=== PATIENT | female | born 1940 | race Caucasian/White ===

== ENCOUNTER 2017-02-07 14:02 | Inpatient (IN) | payer MEDICARE, BC ==
[2017-02-07] VITALS (11 sets, daily range): BP systolic 152–187; BP diastolic 68–81; BMI 23.8
[~2017-02-07] VITALS: Ht 157.5 cm; Wt 62.9 kg
--- NOTE | 2017-02-07 14:29 | NUR ---
RECEIVED VIA WHEELCHAIR TO ROOM. VERY PALE IN COLOR, WILL ADMIT.
[2017-02-07] MEDS ORDERED: NEURONTIN 300300 MG PO (14:39)
[2017-02-07] MEDS ORDERED: PROTONIX40 MG PO (14:41)
[2017-02-07] MEDS ORDERED: SODIUM BICARBO650 MG PO (14:41)
[2017-02-07] MEDS ORDERED: RENVELA800 MG PO (14:42)
[2017-02-07] MEDS ORDERED: FLOMAX0.4 MG PO (14:42)
[2017-02-07] MEDS ORDERED: ROCALTROL0.5 MCG PO (14:42)
[2017-02-07] MEDS ORDERED: BAYER CHEWABLE81 MG PO (14:43)
[2017-02-07] MEDS ORDERED: LOPRESSOR25 MG PO (14:43)
[2017-02-07] MEDS ORDERED: FOLBIC RF TABL1 EACH PO (14:44)
[2017-02-07] MEDS ORDERED: PROBIOTIC1 EAC1 PO (14:45)
[2017-02-07] MEDS ORDERED: COSOPT EYE DROPS5 ML EACH EYE (14:46)
[2017-02-07] MEDS ORDERED: MULTIPLE VITAMI1 TA1 PO (14:46)
[2017-02-07] MEDS ORDERED: ZOCOR20 MG PO (14:47)
[2017-02-07 16:01] LABS: BASOPHILS 0.2 % (0-2); EOSINOPHILS 6.4 % (0-7); HEMATOCRIT 27.9 % (36.0-48.0); IMMATURE GRANULOCYTES 0.1 % (0-5); LYMPHOCYTES 28.7 % (15-50); MCH 28.7 pg (26.0-34.0); MCHC 32.3 g/dL (31.0-37.0); MCV 88.9 fL (80.0-100.0); MEAN PLATELET VOLUME 10.2 fL (7.4-10.4); MONOCYTES 7.4 % (2-11); NEUTROPHILS 57.2 % (40-80); PLATELET COUNT 227 10x3/uL (130-400); RBC 3.14 10x6/uL (4.00-5.40); RDW 13.2 % (11.5-14.5); WBC 9.4 10x3/uL (4.8-10.8)
--- NOTE | 2017-02-07 16:13 | NUR ---
EKG DONE AND URINE SENT FOR CULTURE ORDERED.
[2017-02-07 16:16] LABS: APPEARANCE HAZY (CLEAR); BILIRUBIN NEGATIVE (NEGATIVE); COLOR YELLOW (YELLOW); GLUCOSE 50 mg/dL (NEGATIVE); KETONE NEGATIVE (NEGATIVE); LEUKOCYTE ESTERASE 2+ (NEGATIVE); NITRITE NEGATIVE (NEGATIVE); PROTEIN TRACE mg/dL (NEGATIVE); UROBILINOGEN NORMAL (NORMAL)
[2017-02-07 16:17] LABS: BACTERIA FEW /hpf (NONE SEEN); EPITHELIAL CELLS OCC /hpf (0-5); RED CELLS - URINE >50 /hpf (0-5)
[2017-02-07 16:18] LABS: ANION GAP 15.8 mmol/L (8-16); CALCIUM 11.5 mg/dL (8.5-10.1); CARBON DIOXIDE 31.2 mmol/L (21.0-32.0); CREATININE - SERUM 9.7 mg/dL (0.6-1.3)
--- NOTE | 2017-02-07 17:36 | NUR ---
TO OR VIA BED.
--- NOTE | 2017-02-07 19:22 | NUR ---
RECEIVED FROM VIA BED WITH 02 AT 2L. SLEEPY. BED ALARM IS SET. WILL MONITOR.
--- NOTE | 2017-02-07 19:29 | NUR ---
PATIENT IS BACK FROM SURGERY AND RESTING IN BED WITH DAUGHTER AT BEDSIDE. NO VISIBLE SIGNS OF DISTRESS. PATIENT'S BED IN LOWEST POSITION, CALL LIGHT WITHIN REACH, AND BED ALARM ON. ENCOURAGED THE PATIENT AND DAUGHTER TO CALL IF THEY HAVE NEEDS.
[2017-02-08] VITALS (8 sets, daily range): BP systolic 151–179; BP diastolic 61–72; Ht 157.5 cm; Wt 62.9 kg
--- NOTE | 2017-02-08 07:00 | NUR ---
RECEIVED REPORT. ASSUMED CARE OF PATIENT. CALL LIGHT WITHIN REACH. PATIENT WITH EYES CLOSED. EASILY AROUSED. RESP EVEN AND UNLABORED. DENIES NEEDS AT THIS TIME. NO DISTRESS.
--- NOTE | 2017-02-08 08:35 | NUR ---
ASSISTED PATIENT TO RESTROOM. PATIENT DOES WELL WITH WALKER. STENTS REPLACED YESTERDAY TO BILATERAL URETERS. BLOOD TINGED URINE IN [place] HAT, 375ML. ASSISTED PATIENT BACK TO BED. DAUGHTER AT BEDSIDE. CALL LIGHT WITHIN REACH. NO DISTRESS.
[2017-02-08 09:27] LABS: BASOPHILS 0.3 % (0-2)
[2017-02-08 09:41] LABS: ANION GAP 16.1 mmol/L (8-16); CALCIUM 9.7 mg/dL (8.5-10.1); CREATININE - SERUM 9.4 mg/dL (0.6-1.3); POTASSIUM - SERUM 3.1 mmol/L (3.5-5.1)
--- NOTE | 2017-02-08 10:30 | NUR ---
LAB CALLED TO REPORT AND ERROR IN PREVIOUS LAB RESULTS AND THAT PATIENT DOES NOT HAVE A CRITICAL HEMOGLOBIN OF7.3, HGB IS 8.8. RENAL DOG OBEDIENCE INSTRUCTOR NOTIFIED AND ORDER TO TRANSFUSE BLOOD CANCELED. CALLED ALEX IN LAB AND NOTIFIED HIM THAT BLOOD WOULD NOT BE TRANSFUSED BUT PLEASE TYPE AND CROSS JUST IN CASE WE NEED IT SINCE THE BLOOD HAS ALREADY BEEN RETRIEVED FROM THE PATIENT.
[2017-02-08 10:39] LABS: EOSINOPHILS 5.2 % (0-7); HEMATOCRIT 27.9 % (36.0-48.0); IMMATURE GRANULOCYTES 0.2 % (0-5); LYMPHOCYTES 19.7 % (15-50); MCH 28.6 pg (26.0-34.0); MCHC 31.5 g/dL (31.0-37.0); MCV 90.6 fL (80.0-100.0); MONOCYTES 7.8 % (2-11); NEUTROPHILS 66.8 % (40-80); PLATELET COUNT 204 10x3/uL (130-400); RBC 3.08 10x6/uL (4.00-5.40); RDW 13.3 % (11.5-14.5); WBC 9.2 10x3/uL (4.8-10.8)
[2017-02-08 10:40] LABS: HEMOGLOBIN 8.8 g/dL (12-16)
--- NOTE | 2017-02-08 11:12 | NUR ---
IV FLUID RATE REDUCED TO 10ML/HR ORDERED.
--- NOTE | 2017-02-08 11:45 | NUR ---
IV FLUIDS INCREASED TO 100 ML/HR ORDERED AT THIS TIME. RESTING IN BED. CALL LIGHT WITHIN REACH. NO DISTRESS.
--- NOTE | 2017-02-08 15:30 | NUR ---
SITTING IN BED WITH EYES CLOSED, TABLET ON LAP. CALL LIGHT WITHIN REACH. RESP EVEN AND UNLABORED. TOLERATING IV FLUIDS WELL, NO FLUID OVERLOAD OBSERVED. NO DISTRESS.
--- NOTE | 2017-02-08 18:42 | NUR ---
SITTING IN BED, DAUGHTER AT BEDSIDE. CALL LIGHT WITHIN REACH. DENIES NEEDS.
--- NOTE | 2017-02-08 20:30 | NUR ---
ALERT/ORIENTED X 4. IV IN RT FA WITH NS INFUSING AT 100ML/HR. ADMIN SCHED MEDS WITH SIPS OF WATER AND EYE DROPS. REQUESTED DOOR CLOSED AND LIGHTS OFF TO SLEEP. HAS CALL LIGHT IN REACH.
--- NOTE | 2017-02-09 03:00 | NUR ---
AGRICULTURAL REAL ESTATE AGENT GIVING A BATH AND CHANGING BEDDING.
[2017-02-09 04:00] VITALS: BP 152/62
[2017-02-09 06:10] LABS: BASOPHILS 0.2 % (0-2); EOSINOPHILS 6.2 % (0-7); HEMATOCRIT 24.2 % (36.0-48.0); HEMOGLOBIN 7.6 g/dL (12-16); IMMATURE GRANULOCYTES 0.2 % (0-5); LYMPHOCYTES 22.6 % (15-50); MCH 28.4 pg (26.0-34.0); MCHC 31.4 g/dL (31.0-37.0); MCV 90.3 fL (80.0-100.0); MONOCYTES 7.9 % (2-11); NEUTROPHILS 62.9 % (40-80); PLATELET COUNT 193 10x3/uL (130-400); RBC 2.68 10x6/uL (4.00-5.40); RDW 13.4 % (11.5-14.5); WBC 8.3 10x3/uL (4.8-10.8)
[2017-02-09 06:49] LABS: CALCIUM 9.1 mg/dL (8.5-10.1); CARBON DIOXIDE 24.2 mmol/L (21.0-32.0); CREATININE - SERUM 9.3 mg/dL (0.6-1.3)
[2017-02-09 06:54] LABS: ANION GAP 18.7 mmol/L (8-16)
[2017-02-09 06:57] LABS: POTASSIUM - SERUM 2.9 mmol/L (3.5-5.1)
--- NOTE | 2017-02-09 07:00 | NUR ---
RECEIVED REPORT. ASSUMED CARE OF PATIENT. RESTING IN BED WITH EYES CLOSED. EASILY AROUSED. RESP EVEN AND UNLABORED. NO DISTRESS. STATES SHE FEELS TIRED THIS MORNING. NO DISTRESS.
[2017-02-09 08:00] VITALS: BP 125/62
--- NOTE | 2017-02-09 08:15 | NUR ---
REQUESTED THAT LAB RECHECK H&H SINCE YESTERDAY MORNING HAD A FALSE LOW. LAB REPEATED H&H AND VERIFIED HGB OF 7.8. RENAL NURSE PRACTITIONER HERE AND NOTIFIED THAT BLOOD TRANSFUSION WOULD BE STARTED SINCE LAB VERIFIED H&H. ORDER RECEIVED TO GIVE LASIX BETWEEN UNITS OF BLOOD.
--- NOTE | 2017-02-09 08:30 | NUR ---
BLOOD CONSENT SIGNED AND PLACED ON CHART.
--- NOTE | 2017-02-09 08:50 | NUR ---
BLOOD TRANSFUSION INFUSING, NO REACTION AFTER 5 MINUTES AT THIS TIME. EDUCATED ON S/S OF BLOOD TRANSFUSION REACTION. PATIENTS DAUGHTER AT BEDSIDE. CALL LIGHT WITHIN REACH. NO DISTRESS.
--- NOTE | 2017-02-09 09:52 | NUR ---
PATIENT IS NOT ALLERGIC TO FRUIT AND REQUEST THAT THE FRUIT ALLERGY BE REMOVED FROM HER MEDICAL RECORD SO SHE COULD HAVE A BANANA. BANANA OK'D WITH RENAL NURSE PRACTITIONER K+ LEVEL WAS 3.1 THIS AM.
--- NOTE | 2017-02-09 09:53 | NUR ---
TOLERATING BLOOD TRANSFUSION WELL. RESTING WITH EYES CLOSED. RESP EVEN AND UNLABORED. DAUGHTER AT BEDSIDE. NO DISTRESS.
--- NOTE | 2017-02-09 10:48 | NUR ---
RESTING WELL. CONTINUES TO TOLERATED BLOOD TRANSFUSION. DAUGHTER AT BEDSIDE. CALL WESTON HOLDER.
[2017-02-09 11:31] VITALS: BP 124/64
--- NOTE | 2017-02-09 12:16 | NUR ---
IST UNIT OF PRBC'S COMPLETED AT THIS TIME. NO DISTRESS. PATIENT UP OOB TO RESTROOM AT THIS TIME.
--- NOTE | 2017-02-09 13:18 | NUR ---
UNIT #2 PRBC'S INFUSING. NO TRANSFUSION REACTION. RESTING WELL WITH EYES CLOSED. CALL LIGHT WITHIN REACH. NO DISTRESS.
--- NOTE | 2017-02-09 16:56 | NUR ---
BLOOD TRANSFUSION COMPLETE. TOLERATED WELL. SITTING IN BED CONSUMING PM MEAL. CALL LIGHT WITHIN REACH. NO DISTRESS.
--- NOTE | 2017-02-09 18:08 | NUR ---
1800 RECEIVED NEW ORDER FROM YAHIR KING FOR TYLENOL 650MG PO Q4 HOURS PRN. PATIENT COMPLAINING OF HEADACHE.
--- NOTE | 2017-02-09 19:05 | NUR ---
20 GAUGE IV TO RIGHT FOREARM FOUND TO BE INFILTRATED. IV CATHETER REMOVED, CATHETER TIP INTACT. NO BLEEDING FROM SITE. 2X2 GAUZE APPLIED AND SECURED WITH TAPE. 20 GAUGE IV PLACED TO RIGHT UPPER ARM X 1 STICK. GOOD BLOOD RETURN, EASY FLUSH. TAPED, DATED AND SECURED. IV FLUIDS INFUSING ORDERED. TOLERATED IV PLACEMENT WELL.
--- NOTE | 2017-02-09 19:49 | NUR ---
RESUMED CARE OF PT, LYING IN BED RESPIRATIONS EVEN AND UNLABORED ON ROOM AIR. RIGHT UPPER ARM INFUSING NS @ 50. PLAN OF CARE DISCUSSED, CALL LIGHT IN REACH. NO NEEDS VOICED AT THIS TIME. SEE NURSE ASSESSMENT.
[2017-02-09 22:00] VITALS: BP 160/59
[2017-02-10] VITALS: BP 174/72
[2017-02-10 04:39] LABS: BASOPHILS 0.2 % (0-2); EOSINOPHILS 6.9 % (0-7); IMMATURE GRANULOCYTES 0.2 % (0-5); LYMPHOCYTES 19.7 % (15-50); MCHC 33.4 g/dL (31.0-37.0); MEAN PLATELET VOLUME 9.9 fL (7.4-10.4); MONOCYTES 11.9 % (2-11); NEUTROPHILS 61.1 % (40-80); PLATELET COUNT 180 10x3/uL (130-400); RDW 13.9 % (11.5-14.5); WBC 8.8 10x3/uL (4.8-10.8)
[2017-02-10 04:42] LABS: HEMATOCRIT 32.6 % (36.0-48.0); HEMOGLOBIN 10.9 g/dL (12-16); MCV 86.7 fL (80.0-100.0); RBC 3.76 10x6/uL (4.00-5.40)
[2017-02-10 04:52] LABS: ANION GAP 16.8 mmol/L (8-16); CALCIUM 8.9 mg/dL (8.5-10.1); CARBON DIOXIDE 22.3 mmol/L (21.0-32.0); CREATININE - SERUM 8.2 mg/dL (0.6-1.3); MAGNESIUM - SERUM 1.4 mg/dL (1.8-2.4); POTASSIUM - SERUM 3.1 mmol/L (3.5-5.1)
[2017-02-10 05:03] VITALS: BP 180/70
[2017-02-10 08:00] VITALS: BP 171/68
--- NOTE | 2017-02-10 08:00 | NUR ---
PATIETN RESTING IN HER BED, DAUGHTER AT THE BEDSIDE. SHE IS WITHOUT C/O ANY KIND.
--- NOTE | 2017-02-10 08:35 | NUR ---
OSMANI TOOK ALL MEDICATIONS WITHOUT DIFFICULTY.
[2017-02-10 12:00] VITALS: BP 157/68
--- NOTE | 2017-02-10 12:52 | NUR ---
Nutrition follow-up: Diet: Renal ADA consistent CHO PO intake 75-100% of meals labs reviewed +BM Wt: 139# RDN following.
--- NOTE | 2017-02-10 14:10 | NUR ---
PATIENT UP TO THE RESTROOM USING HER WALKER. SHE REQUIRES STAND BY ASSIST ONLY.
--- NOTE | 2017-02-10 14:47 | NUR ---
Patient Name: GOSIA VILLANUEVA Admission Status: Urgent Accout number: [id number] Admission Date: 02-07-2017 : 1940 Admission Diagnosis: Attending: DIAMANTE Current LOS: 3 Anticipated DC Date: 02-12-2017 Planned Disposition: Home Primary Insurance: MEDICARE A & B Discharge Planning Comments: * Is the patient Alert and Oriented? Yes 0 * How many steps to enter\exit or inside your home? RAMP 0 * PCP DR. NAVARRO IN [place] 0 * Pharmacy [facility] IN [place] 0 * Preadmission Environment Home with Family 0 * ADLs Partial Dependent 0 * Partial ADLs (Assistance needed) Medication Management 0 * Equipment Walker 0 * Other Equipment NO MEDICAL EQUIPMENT PROVIDER PREFERENCE 0 * List name and contact numbers for known caregivers / representatives who currently or will assist patient after discharge: BRYN VILLANUEVA, DAUGHTER, 0 * Community resources currently utilized None 0 * Please name any agencies selected above. NONE 0 * Additional services required to return to the preadmission environment? No 0 * Can the patient safely return to the preadmission environment? Yes 0 * Has this patient been hospitalized within the prior 30 days at any hospital? No 0 CM MET WITH PT IN ROOM TO DISCUSS DISCHARGE PLANNING AND NEEDS. PT REPORTS LIVING AT HOME INDEPENDENTLY WITH HER SPOUSE. PT'S DAUGHTER IS AVAILABLE TO ASSIST HER AT HOME NEEDED AND ALREADY ASSISTS WITH MEDICATION MANAGEMENT. PT HAS A WALKER AND NO PREFERRED MEDICAL EQUIPMENT PROVIDER. PT HAS NO OUTSIDE SERVICES ASSISTING IN THE HOME. CM DISCUSSED AVAILABILITY OF HOME HEALTH, REHAB SERVICES AND MEDICAL EQUIPMENT. PT DENIES DISCHARGE NEEDS, REPORTS HER DAUGHTER WILL PICK HER UP FOR DISCHARGE HOME. IMPORTANT MESSAGE FROM MEDICARE PROVIDED AND EXPLAINED. Cuff Turner Machine Operator: Rafael Guidry
[2017-02-10 16:00] VITALS: BP 149/71
--- NOTE | 2017-02-10 18:03 | NUR ---
PATIENT IS RESTING QUIETLY IN HER BED, IV ABT COMPLETE. HER IV HAD TO BE RESITED TO THE RIGHT HAND DUE TO THE LEFT UPPER ARM SITE LEAKING OUT. SHE C/O DIARRHEA FROM EATING FRUITS. SHE STATE SHTAT SHE USUALLY HAS ONE PIECE DAILY BUT HAS HAD A PIECE WITH EACH MEAL SINCE BEING HERE.
--- NOTE | 2017-02-10 20:22 | NUR ---
PT AWAKE, ALERT, ORIENTED, DENIES ANY NEEDS. CONTINUE TO MONITOR CLOSELY.
[2017-02-10 23:00] VITALS: BP 190/84
--- NOTE | 2017-02-10 23:51 | NUR ---
PT RESTING COMFORTABLY IN BED, EASILY ROUSABLE TO VERBAL STIMULI, CONTINUE TO MONITOR CLOSELY. PT REQUIRES MINIMAL ASSIST AMBULATING TO BATHROOM, AND USES HER WALKER WELL.
[2017-02-11 01:51] VITALS: BP 169/56
[2017-02-11 05:36] VITALS: BP 171/68
[2017-02-11 06:08] LABS: BASOPHILS 0.3 % (0-2); EOSINOPHILS 7.4 % (0-7); HEMATOCRIT 34.1 % (36.0-48.0); HEMOGLOBIN 11.1 g/dL (12-16); IMMATURE GRANULOCYTES 0.6 % (0-5); LYMPHOCYTES 24.5 % (15-50); MCH 28.5 pg (26.0-34.0); MCHC 32.6 g/dL (31.0-37.0); MCV 87.4 fL (80.0-100.0); MEAN PLATELET VOLUME 10.4 fL (7.4-10.4); MONOCYTES 11.4 % (2-11); NEUTROPHILS 55.8 % (40-80); PLATELET COUNT 184 10x3/uL (130-400); RDW 13.8 % (11.5-14.5); WBC 7.9 10x3/uL (4.8-10.8)
[2017-02-11 06:20] LABS: CALCIUM 8.9 mg/dL (8.5-10.1); CREATININE - SERUM 7.8 mg/dL (0.6-1.3); PHOSPHOROUS 3.8 mg/dL (2.5-4.9)
--- NOTE | 2017-02-11 07:15 | NUR ---
RECEIVED REPORT. ASSUMED CARE OF PATIENT. RESTING WITH EYES CLOSED ON LEFT LATERAL SIDE. EASILY AROUSED. RESP EVEN AND UNLABORED. NO DISTRESS. CALL LIGHT WITHIN REACH.
[2017-02-11 08:00] VITALS: BP 154/53
[2017-02-11 12:03] VITALS: BP 173/59
[2017-02-11 16:00] VITALS: BP 131/71
--- NOTE | 2017-02-11 16:55 | NUR ---
ATTEMPTED TO FLUSH 2O GAUGE TO RIGHT HAND AND IV SITE WILL NOT FLUSH, SALINE RUNNING OUT UNDER DRESSING. IV SITE D/C'D, CATHETER TIP INTACT. NO BLEEDING FROM SITE. 2X2 GAUGE APPLIED AND SECURED WITH TAPE. NO DISTRES.
[2017-02-11 21:01] VITALS: BP 169/78
[2017-02-12 01:04] VITALS: BP 161/62
--- NOTE | 2017-02-12 02:18 | NUR ---
PT LYING ON HER RIGHT SIDE, EYES CLOSED, RESPIRATIONS EVEN AND UNLABORED. PT EASILY ROUSABLE TO VERBAL STIMULI. CONTINUE TO MONITOR CLOSELY.
[2017-02-12 04:18] VITALS: BP 163/67
[2017-02-12 06:01] LABS: BASOPHILS 0.2 % (0-2); EOSINOPHILS 8.7 % (0-7); HEMATOCRIT 33.8 % (36.0-48.0); HEMOGLOBIN 11.1 g/dL (12-16); IMMATURE GRANULOCYTES 0.5 % (0-5); LYMPHOCYTES 25.4 % (15-50); MCH 28.8 pg (26.0-34.0); MCHC 32.8 g/dL (31.0-37.0); MCV 87.6 fL (80.0-100.0); MEAN PLATELET VOLUME 10.1 fL (7.4-10.4); MONOCYTES 10.8 % (2-11); NEUTROPHILS 54.4 % (40-80); PLATELET COUNT 205 10x3/uL (130-400); RBC 3.86 10x6/uL (4.00-5.40); RDW 13.8 % (11.5-14.5)
[2017-02-12 06:32] LABS: % SATURATION 14 % (15-55); IRON 30 ug/dl (35-150); TOTAL IRON BIND CAPACITY 202 ug/dl (260-445); UNSAT IRON BIND CAPACITY 172 ug/dl (150-375)
[2017-02-12 06:35] LABS: ANION GAP 19.2 mmol/L (8-16); CALCIUM 8.9 mg/dL (8.5-10.1); CARBON DIOXIDE 18.4 mmol/L (21.0-32.0); CREATININE - SERUM 7.5 mg/dL (0.6-1.3); MAGNESIUM - SERUM 1.4 mg/dL (1.8-2.4); POTASSIUM - SERUM 3.6 mmol/L (3.5-5.1)
[2017-02-12 08:00] VITALS: BP 144/54
[2017-02-12 12:00] VITALS: BP 171/71
--- NOTE | 2017-02-12 15:02 | NUR ---
UP IN BED PLAYING ON IPAD - DENIES ANY NEEDS - EPOGEN GIVEN LATE D/T NOT STOCKED IN REFRIDGERATOR
[2017-02-12 16:00] VITALS: BP 141/63
--- NOTE | 2017-02-12 16:07 | NUR ---
CALLED PHARMACY TO RESCHEDULE ROCEPHIN D/T LAST NIGHTS DOSE NOT GIVEN UNTIL TODAY
--- NOTE | 2017-02-12 18:22 | NUR ---
UP IN BED VISITIONG W/ DAUGHTER - DENIES ANY NEEDS
[2017-02-12 19:00] VITALS: BP 205/85
--- NOTE | 2017-02-12 20:01 | NUR ---
PT IN BED RESTING. C/O HEADACHE 01/11. WILL CHECK MAR FOR SOMETHING FOR THE HEADACHE. D5W RUNNING AT 75 TO RIGHT FOREARM IV, NO COMPLAINTS ABOUT IV. DRESSING CLEAN DRY AND INTACT. PT DENIES ANY OTHER NEEDS. NO S/S OF DISTRESS. WILL CONTINUE TO MONITOR
[2017-02-13] VITALS (7 sets, daily range): BP systolic 140–172; BP diastolic 56–85
--- NOTE | 2017-02-13 01:24 | NUR ---
PT SLEEPING RESPIRATIONS EVEN AND UNLABORED. NO S/S OF DISTRESS. WILL CONTINUE TO MONITOR
[2017-02-13 06:16] LABS: BASOPHILS 0.3 % (0-2); EOSINOPHILS 6.8 % (0-7); HEMOGLOBIN 10.1 g/dL (12-16); IMMATURE GRANULOCYTES 0.8 % (0-5); LYMPHOCYTES 24.5 % (15-50); MCH 28.2 pg (26.0-34.0); MCHC 32.6 g/dL (31.0-37.0); MCV 86.6 fL (80.0-100.0); MEAN PLATELET VOLUME 10.7 fL (7.4-10.4); MONOCYTES 10.7 % (2-11); NEUTROPHILS 56.9 % (40-80); PLATELET COUNT 192 10x3/uL (130-400); RBC 3.58 10x6/uL (4.00-5.40); RDW 13.9 % (11.5-14.5); WBC 6.7 10x3/uL (4.8-10.8)
[2017-02-13 06:25] LABS: ANION GAP 20.8 mmol/L (8-16); CALCIUM 9.6 mg/dL (8.5-10.1); CARBON DIOXIDE 18.1 mmol/L (21.0-32.0); CREATININE - SERUM 7.5 mg/dL (0.6-1.3); PHOSPHOROUS 4.1 mg/dL (2.5-4.9); POTASSIUM - SERUM 3.9 mmol/L (3.5-5.1)
--- NOTE | 2017-02-13 07:04 | NUR ---
PT IN ROOM RESTING. IV NOT INFUSING R/T PUMP PROB. KOTA NOTIFIED. PT DENIES ANY NEEDS. NO S/S OF DISTRESS. WILL CONTINUE TO MONITOR
--- NOTE | 2017-02-13 07:45 | NUR ---
INTRODUCED MYSELF TO PT PRIMARY RN FOR TODAYS SHIFT. PT A&O SITTING UP IN BED WITH DAUGHTER AT BEDSIDE RESTING COMFORTABLY. SHIFT ASSESSMENT COMPLETED. PT WILL HAVE A STUDENT NURSE TODAY CK AND IS AWARE AND HAD HER YESTERDAY AND VERBALIZED ITS OKAY FOR HER TO PROVIDE HER CARE TODAY. PT DENIES ANY CURRENT PAIN OR NEEDS AT THIS TIME. CL IN REACH, BED IN LOWEST, SIDE RAILS X2 WILL CPOC.
--- NOTE | 2017-02-13 13:34 | NUR ---
Dialysis Coordinator: notified of patient. Review chart, no orders for OPHD placement needs. GEN REYES.
--- NOTE | 2017-02-13 14:43 | NUR ---
PTS R.FA PIV INFILTRATED. D/C WITH CATH TIP FULLY INTACT. NEW 22 GUAGE PLACED VIA R.HAND WITH DRSG CDI AND SWAB CAPS IN USE. ALL NEW TUBING PROVIDED AND DATED PER POLICY. PT HAS D5 1/2 NS INFUSING @75ML/HR. PT SITTING UP IN BED RESTING QUIETLY PLAYING A GAME ON HER TABLET, DENIES ANY CURRENT PAIN OR NEEDS. CL IN REACH, BED IN LOWEST, SIDE RAILS X2. WILL CPOC.
--- NOTE | 2017-02-13 19:32 | NUR ---
ALERT/AWAKE WATCHING TV WITH VISITOR. DENIES PAIN OR ANY NEEDS. IV IN RT HAND INTACT WITH IVF INFUSING. HAS CALL LIGHT AND BEDSIDE TABLE IN REACH WITH PERSONAL ITEMS.
--- NOTE | 2017-02-13 21:10 | NUR ---
ADMIN SCHED MEDS AND TYLENOL 650MG FOR C/O HEADACHE. AMBULATED TO BATHROOM WITH WALKER TO VOID. URINE HAS A PINK TINGE. NO OTHER NEEDS VOICED.
[2017-02-14 04:00] VITALS: BP 130/71
--- NOTE | 2017-02-14 04:15 | NUR ---
PROFESSIONAL ATHLETES COACH ASSISTING BACK TO BED FROM BATHROOM. DENIES ANY OTHER NEEDS.
[2017-02-14 05:41] LABS: BASOPHILS 0.2 % (0-2); EOSINOPHILS 6.2 % (0-7); HEMATOCRIT 34.6 % (36.0-48.0); HEMOGLOBIN 11.5 g/dL (12-16); IMMATURE GRANULOCYTES 0.7 % (0-5); LYMPHOCYTES 22.9 % (15-50); MCHC 33.2 g/dL (31.0-37.0); MCV 87.2 fL (80.0-100.0); MEAN PLATELET VOLUME 9.9 fL (7.4-10.4); PLATELET COUNT 219 10x3/uL (130-400); RBC 3.97 10x6/uL (4.00-5.40); RDW 13.8 % (11.5-14.5)
[2017-02-14 05:44] LABS: WBC 8.7 10x3/uL (4.8-10.8)
[2017-02-14 05:46] LABS: ANION GAP 18.4 mmol/L (8-16); CALCIUM 9.5 mg/dL (8.5-10.1); CREATININE - SERUM 7.5 mg/dL (0.6-1.3); PHOSPHOROUS 3.3 mg/dL (2.5-4.9); POTASSIUM - SERUM 3.4 mmol/L (3.5-5.1)
--- NOTE | 2017-02-14 07:40 | NUR ---
INTRODUCED MYSELF TO PT PRIMARY RN FOR TODAYS SHIFT. PT IS A&O SITTING UP IN BED RESTING COMFORTABLY. PT STATES SHE COULDNT SLEEP ALL NIGHT BUT FEELS GOOD OVERALL. SHIFT ASSESSMENT COMPLETED. D/C PTS FLUID ORDERED PER . FLUSHED R.HAND PIV AND SL IT. EMPTIED TOP HAT OF 500ML YELLOW URINE. ORDER FOR URINE SPECIMEN AND TEACHING PROVIDED TO PT FOR NEED OF SAMPLE. PT VERBALIZED UNDERSTANDING AND WILL PROVIDE SAMPLE WHEN AVAILABLE. PT DENIES ANY CURRENT PAIN OR NEEDS. DAUGHTER AT BEDSIDE. WILL CPOC.
--- NOTE | 2017-02-14 08:13 | NUR ---
URINE SPECIMEN COLLECTED AND SENT TO LAB. PTS BP ELEVATED SYSTOLIC OF 202. WILL PROVIDE PT WITH HER MORNING MEDICATIONS ALONG WITH PRN CLONIDINE FOR SBP >180. PT C/O AND WILL ALSO BE PROVIDED WITH TYLENOL. PT STATED BREAKFAST WAS VERY GOOD AND DENIES ANY FURTHER NEEDS AT THIS TIME. CL IN REACH, BED IN LOWEST, SIDE RAILS X2. WILL CPOC.
[2017-02-14 08:36] VITALS: BP 202/83
[2017-02-14 08:41] LABS: APPEARANCE CLEAR (CLEAR); COLOR YELLOW (YELLOW)
[2017-02-14 08:42] LABS: BACTERIA MODERATE /hpf (NONE SEEN); BILIRUBIN NEGATIVE (NEGATIVE); EPITHELIAL CELLS 0-5 /hpf (0-5); GLUCOSE NEGATIVE (NEGATIVE); KETONE NEGATIVE (NEGATIVE); LEUKOCYTE ESTERASE 1+ (NEGATIVE); MUCUS <1+ /lpf (NONE SEEN); NITRITE NEGATIVE (NEGATIVE); PROTEIN TRACE mg/dL (NEGATIVE); UROBILINOGEN NORMAL (NORMAL)
[2017-02-14 12:55] VITALS: BP 120/78
--- NOTE | 2017-02-14 13:42 | NUR ---
Nutrition Follow Up: Pt reported that her appetite is overall poor. Food preferences noted. RD encouraged pt to eat as much as she can. She is eating 69% meal avg on a renal ADA diet. Wt loss since admit noted - likely r/t fluid. +BM 02/12/17. Labs reviewed. Meds noted including Lasix, MV. Rec continue current diet. RD following.
[2017-02-14 17:41] VITALS: BP 159/70
--- NOTE | 2017-02-14 18:39 | NUR ---
PT RESTING QUIETLY IN BED. STATES SHE HAS HAD A GOOD DAY OVERALL AND FEELS "ALRIGHT" PT HOPES TO BE DISCHARGED SOON. DENIES ANY CURRENT PAIN OR NEEDS. CL IN REACH, WILL DO BEDSIDE SHIFT REPORT TO NIGHTSHIFT NURSE.
--- NOTE | 2017-02-14 19:15 | NUR ---
RETURNING TO BED FROM BATHROOM. AMBULATING WITH WALKER. IV IN R HAND INTACT SL. C/O OF HEADACHE PAIN LEVEL 7 ON NUMBER SCALE, DESCRIBED ACHING. REQUESTED TYLENOL WITH EVENING MEDS.
[2017-02-14 20:00] VITALS: BP 150/55
[2017-02-15] VITALS: BP 176/69
--- NOTE | 2017-02-15 01:59 | NUR ---
ADMIN GABAPENTIN PER REQUEST FOR C/O LEG PAIN.
[2017-02-15 04:53] LABS: BASOPHILS 0.4 % (0-2); EOSINOPHILS 6.1 % (0-7); HEMATOCRIT 35.4 % (36.0-48.0); HEMOGLOBIN 11.7 g/dL (12-16); IMMATURE GRANULOCYTES 1.1 % (0-5); LYMPHOCYTES 30.1 % (15-50); MCHC 33.1 g/dL (31.0-37.0); MCV 87.6 fL (80.0-100.0); MEAN PLATELET VOLUME 9.8 fL (7.4-10.4); MONOCYTES 11.8 % (2-11); NEUTROPHILS 50.5 % (40-80); PLATELET COUNT 224 10x3/uL (130-400); RBC 4.04 10x6/uL (4.00-5.40); RDW 14.1 % (11.5-14.5)
[2017-02-15 05:33] LABS: ANION GAP 19.9 mmol/L (8-16); CALCIUM 9.4 mg/dL (8.5-10.1); CARBON DIOXIDE 18.6 mmol/L (21.0-32.0); CREATININE - SERUM 7.2 mg/dL (0.6-1.3); PHOSPHOROUS 3.3 mg/dL (2.5-4.9); POTASSIUM - SERUM 3.5 mmol/L (3.5-5.1)
--- NOTE | 2017-02-15 07:29 | NUR ---
PT RESTING IN BED EVEN AND UNLABORED RESPIRATIONS NOTED WILL CONTINUE TO MONITOR
[2017-02-15 08:00] VITALS: BP 140/51
--- NOTE | 2017-02-15 09:58 | NUR ---
AM MEDICATION ADMINISTERED HOWEVER DUE TO LENGTH OF TIME IT TAKES TO GET PATIENT TO TAKE MEDS, COMPUTER TIMED OUT AND MEDICATION PACKAGING ALREADY THROWN AWAY AND UNABLE TO RESCAN. MOTHER AT BEDSIDE DURING ADMINISTRATION OF ALL MEDS GIVEN.
[2017-02-15 12:00] VITALS: BP 162/53
[2017-02-15 16:00] VITALS: BP 182/80
[2017-02-15 20:00] VITALS: BP 126/63
--- NOTE | 2017-02-15 20:00 | NUR ---
REC'D IN BED AWAKE AND ALERT. RESP EVEN AND UNLABORED WITH NO DISTRESS NOTED. CAN VOICE NEEDS AND WANTS WITH NO C/O NOTED ASSESMENT WAS COMPLETE AT THIS TIME. WILL CONTINUE TO OBSERVE FOR NEEDS. C/L IN REACH AT BEDSIDE.
--- NOTE | 2017-02-15 21:07 | NUR ---
c/o foot pain was medicated with gabapentin per orders.
--- NOTE | 2017-02-16 02:22 | NUR ---
PT LYING IN BED, SUPINE, EYES CLOSED, RESPIRATIONS EVEN AND UNLABORED. CONTINUE TO MONITOR CLOSELY.
[2017-02-16 04:00] VITALS: BP 123/73
--- NOTE | 2017-02-16 05:31 | NUR ---
c/o headache was medicated with apap per orders.
[2017-02-16 06:39] LABS: BASOPHILS 0.3 % (0-2); EOSINOPHILS 5.6 % (0-7); HEMATOCRIT 38.7 % (36.0-48.0); HEMOGLOBIN 12.8 g/dL (12-16); IMMATURE GRANULOCYTES 1.4 % (0-5); MCH 29.3 pg (26.0-34.0); MCHC 33.1 g/dL (31.0-37.0); MCV 88.6 fL (80.0-100.0); MEAN PLATELET VOLUME 9.7 fL (7.4-10.4); MONOCYTES 12.1 % (2-11); NEUTROPHILS 53.6 % (40-80); PLATELET COUNT 248 10x3/uL (130-400); RBC 4.37 10x6/uL (4.00-5.40); RDW 14.6 % (11.5-14.5); WBC 8.6 10x3/uL (4.8-10.8)
[2017-02-16 06:48] LABS: ANION GAP 18.6 mmol/L (8-16); CALCIUM 9.6 mg/dL (8.5-10.1); CREATININE - SERUM 6.7 mg/dL (0.6-1.3); POTASSIUM - SERUM 3.6 mmol/L (3.5-5.1)
--- NOTE | 2017-02-16 07:16 | NUR ---
PT IN BED AROUSED TO DOOR OPENING NO NEEDS AT THIS TIME WILL CONTINUE TO MONITOR
[2017-02-16 08:38] VITALS: BP 141/53
[2017-02-16 12:36] VITALS: BP 110/49
--- NOTE | 2017-02-16 14:00 | NUR ---
PATIENT RESTING IN BED WITH EYES OPEN, ATTENTION TOWARD TELEVISION. PATIENT DENIES NEEDS AT THIS TIME. CONTINUES TO HAVE SLIGHT BLOOD TINGED URINE. PATIENT RECENTLY HAD BILATERAL URETER STENT PLACEMENT. RESP EVEN AND UNLABORED. NO DISTRESS. CALL LIGHT WITHIN REACH.
--- NOTE | 2017-02-16 15:13 | NUR ---
PT IN BED WATCHING TELEVISION NO NEEDS AT THIS TIME WILL CONTINUE TO MONITOR
[2017-02-16 16:23] VITALS: BP 140/57
[2017-02-16 20:00] VITALS: BP 136/55
--- NOTE | 2017-02-17 03:13 | NUR ---
CALL LIGHT IN REACH, WILL CONTINUE WITH PLAN OF CARE.
[2017-02-17 04:00] VITALS: BP 125/54
[2017-02-17] MEDS ORDERED: Levaquin PO (06:59)
--- NOTE | 2017-02-17 07:10 | NUR ---
AM ROUNDS - PT UP TO BATHROOM, FAMILY IN ROOM. RR EVEN AND UNLABORED. INTRODUCED SELF AND PLACE NAME ON WHITE BOARD. DISCUSSED D/C TODAY AND GENERAL PLAN FOR DAY. DENIES OTHER NEEDS AT THIS TIME, WILL CTM.
[2017-02-17 08:00] VITALS: BP 144/60
[2017-02-17] MEDS ORDERED: LEVAQUIN250 MG PO (09:15)
--- NOTE | 2017-02-17 09:37 | NUR ---
Patient Name: GOSIA VILLANUEVA Encounter No: [id number] : 1940 Primary Insurance: MEDICARE A & B Anticipated DC Date: 02-17-2017 Planned Disposition: Home DCP follow-up note: CM MET WITH PT IN ROOM TO DISCUSS DISCHARGE NEEDS AND PLANNING. CM DISCUSSED AVAILABILITY OF HOME HEALTH, REHAB SERVICES AND MEDICAL EQUIPMENT. PT DENIES DISCHARGE NEEDS. DAUGHTER HERE TO TRANSPORT HOME AT DISCHARGE TODAY. IMPORTANT MESSAGE FROM MEDICARE PROVIDED AND EXPLAINED. Rafael Guidry, CASE MANAGEMENT
--- NOTE | 2017-02-17 10:15 | NUR ---
PT DISCHARGED. DISCHARGE INSTRUCTIONS PROVIDED TO PT AND FAMILY; VERBALIZED UNDERSTANDING. D/C PAPERS SIGNED. IV CATHETER REMOVED WITH CATHETER TIP INTACT. PT WILL BE GOING HOME WITH FAMILY MEMBER IN PERSONAL VEHICLE. WILL CALL FOR WHEELCHAIR WHEN PT IS READY TO LEAVE. WILL CTM.
== END 2017-02-17 12:02 | disposition home or self-care (01) | DRG 699 ==
LOC: D.M2 14:02 → D.OPS 16:00 → EDSTATUS 16:00 → D.M2 02-17 12:02
PROVIDERS: Urology; ADMIT Internal Medicine Nephrology
PROC: BT141ZZ Fluoroscopy of Kidneys, Ureters and Bladder using Low Osmolar Contrast (ICD-10-PCS; 2017-02-07)
PROC: 0TP98DZ Removal of Intraluminal Device from Ureter, Via Natural or Artificial Opening Endoscopic (ICD-10-PCS; principal; 2017-02-07 16:00)
PROC: 0T788DZ Dilation of Bilateral Ureters with Intraluminal Device, Via Natural or Artificial Opening Endoscopic (ICD-10-PCS; 2017-02-07 16:00)
DX: T83.593A Infection and inflammatory reaction due to other urinary stents, initial encounter (principal); N17.9 Acute kidney failure, unspecified; N13.6 Pyonephrosis; E11.22 Type 2 diabetes mellitus with diabetic chronic kidney disease; I12.9 Hypertensive chronic kidney disease with stage 1 through stage 4 chronic kidney disease, or unspecified chronic kidney disease; N18.9 Chronic kidney disease, unspecified; D64.9 Anemia, unspecified; E87.6 Hypokalemia; Y83.8 Other surgical procedures as the cause of abnormal reaction of the patient, or of later complication, without mention of misadventure at the time of the procedure; B95.7 Other staphylococcus as the cause of diseases classified elsewhere

== ENCOUNTER 2018-08-03 08:10 | Day surgery (SDC) | payer MEDICARE, BC ==
[~2018-08-03] VITALS: Ht 157.5 cm; Wt 56.7 kg
[~2018-08-03 08:10] MED LIST: BAYER CHEWABLE81 MG PO; COSOPT EYE DROPS5 ML EACH EYE; FLOMAX0.4 MG PO; FOLBIC RF TABL1 EACH PO; LEVAQUIN250 MG PO; LOPRESSOR25 MG PO; Levaquin PO; MULTIPLE VITAMI1 TA1 PO; NEURONTIN 300300 MG PO; PROBIOTIC1 EAC1 PO; PROTONIX40 MG PO; RENVELA800 MG PO; ROCALTROL0.5 MCG PO; SODIUM BICARBO650 MG PO; ZOCOR20 MG PO
[2018-08-03 08:43] LABS: BASOPHILS 0.2 % (0-2); EOSINOPHILS 2.4 % (0-7); HEMATOCRIT 38.2 % (36.0-48.0); HEMOGLOBIN 11.6 g/dL (12-16); IMMATURE GRANULOCYTES 0.6 % (0-5); LYMPHOCYTES 25.7 % (15-50); MCH 30.2 pg (26.0-34.0); MCHC 30.4 g/dL (31.0-37.0); MCV 99.5 fL (80.0-100.0); MEAN PLATELET VOLUME 9.9 fL (7.4-10.4); MONOCYTES 7.4 % (2-11); NEUTROPHILS 63.7 % (40-80); RBC 3.84 10x6/uL (4.00-5.40); RDW 18.1 % (11.5-14.5); WBC 8.4 10x3/uL (4.8-10.8)
[2018-08-03 08:45] LABS: PLATELET COUNT 91 10x3/uL (130-400)
[2018-08-03 08:51] LABS: INR 0.75 (0.85-1.17); PROTIME 10.1 SECONDS (11.6-15.0)
[2018-08-03 08:56] LABS: ANION GAP 19.8 mmol/L (8-16); APTT 22.4 SECONDS (22.8-39.4); CARBON DIOXIDE 24.4 mmol/L (21.0-32.0); CREATININE - SERUM 6.3 mg/dL (0.6-1.3); POTASSIUM - SERUM 5.2 mmol/L (3.5-5.1)
[2018-08-03 09:03] LABS: PLATELET ESTIMATE DECREASED
[2018-08-03] MEDS ORDERED: RENA-VITE TABL0.8 MG PO (09:28)
[2018-08-03] MEDS ORDERED: GABAPENTIN100 MG PO (09:30)
[2018-08-03] MEDS ORDERED: NEURONTIN 300300 MG PO (09:31)
[2018-08-03] MEDS ORDERED: IMODIUM2 MG PO (09:32)
[2018-08-03] MEDS ORDERED: ATARAX 25 MG TA25 MG PO (09:32)
[2018-08-03 09:44] VITALS: Ht 157.5 cm; Wt 56.7 kg
--- NOTE | 2018-08-03 17:20 | NUR ---
TOLERATED DIET. IV D/C'D CATH INTACT.
--- NOTE | 2018-08-03 17:35 | NUR ---
D/C INSTRUCTIONS EXPLAINED TO PT AND DAUGHTER. VOICED UNDERSTANDING. COPIES OF ALL GIVEN. OPC TO CONTACT FOR FISTULAGRAM IN APPROX 3 MONTHS.
--- NOTE | 2018-08-03 17:45 | NUR ---
D/C'D HOME VIA W/C TO PRIVATE CAR.
--- NOTE | 2018-08-06 09:29 | OP ---
PATIENT NAME: GOSIA VILLANUEVA MEDICAL RECORD: [id number] :[birth year] LOCATION:[facility] ADMISSION DATE: SURGEON: TANVI MILLER MD DATE OF OPERATION: 08/03/2018 PREOPERATIVE DIAGNOSES: End-stage renal disease, dependence on hemodialysis, left subclavian stenosis, and mechanical complication of left AV shunt. POSTOPERATIVE DIAGNOSES: End-stage renal disease, dependence on hemodialysis, left subclavian stenosis, and mechanical complication of left AV shunt. OPERATION PERFORMED: Left arm fistulogram and stenting of left subclavian vein. SURGEON: Tanvi Miller MD ANESTHESIA: General with an LMA per CONSULTING APPLICATION ENGINEER. REFERRING PHYSICIANS: Chris Flores MD and Anastacio Faulkner MD PREOPERATIVE NOTE: Ms. Villanueva is a 78-year-old white female patient on chronic hemodialysis, who has been on dialysis I believe for about a year and has a very well-functioning left upper arm AV graft. Back in April of this year, I did a fistulogram at [facility] and did a balloon angioplasty of a rather bad stenosis of the proximal left subclavian vein and had some residual. It was my thought at that time that this lesion should be stented. It has been somewhat difficult to get her scheduled for this procedure. There have been numerous delays and cancellations and rescheduling. She is brought to the operating room now finally on 's Mally. Under anesthesia, the patient was placed in supine position, prepped and draped in a sterile manner. Micropuncture technique was used to cannulate the graft near the arterial anastomosis, directed towards the venous anastomosis. Contrast was injected and I noted no stenosis or significant lesions of the body of the graft or JA or VA segments. Two overlapping stents are present in the venous outflow and there was no stenosis around them. The subclavian stenosis had certainly recurred and was about 95% occluding. Several digital subtraction views were made and a roadmap prepared. An 8-Cay[place] Islander introducer was inserted and a Glidewire advanced through the lesion and through the superior vena cava and right atrium into the inferior vena cava. A guidewire exchange for an Amplatz wire was made. Then, over the Amplatz wire, I inserted a 9-mm x 3.6-mm Etna VBX balloon expandable PTFE heparin bound stent. That was inflated to a nominal 9 mm diameter fairly easily, although a very significant stenosis was certainly present. After inflating the balloon, it was carefully removed and repeated contrast injection done with subtraction. This revealed a very nice position and angiographic appearance with complete resolution of the stenosis. The hardware was removed and a 4-0 Prolene [id number]-[id number] suture placed at the cannulation site and bleeding was controlled with some gentle light pressure very rapidly. That site was then dressed with Ultrafoam, Tegaderm, and Cavilon. The patient was awakened and in stable condition returned to the recovery room. Blood loss during the procedure was 5 cc or less. Sponges, instruments, and needles were accounted for. No drain was used and no surgical specimen submitted for histopathology. OPERATIVE REPORT [id number] GOSIA VILLANUEVA PLAN: The patient will go home today. I will ask that she return to [facility] in 3 months for a followup angiogram. I am concerned about the potential for recurrent axillary vein stenosis proximal to the stents already in place. Of course, we have to be concerned about recurrent subclavian stenosis as well due to first rib compression. TRANSINT:[id number] Voice Confirmation ID: [id number] DOCUMENT ID: [id number] TANVI MILLER MD at 0929 CC: ANASTACIO FAULKNER and CHRIS FLORES [phone] DICTATION DATE: 08/03/18 1514 WORKFORCE PLANNING ANALYST: 08/04/18 0101 [facility] 08/03/18 [facility] [address] [place] [address]
== END 2018-08-03 17:59 | disposition home or self-care (01) ==
LOC: D.OPS 08:10
PROVIDERS: Internal Medicine Nephrology
DX: T82.590A Other mechanical complication of surgically created arteriovenous fistula, initial encounter (principal); I87.1 Compression of vein; N18.6 End stage renal disease; Z99.2 Dependence on renal dialysis; Z01.812 Encounter for preprocedural laboratory examination

== ENCOUNTER 2018-09-16 16:58 | Inpatient (IN) | payer MEDICARE, BC ==
[~2018-09-16] VITALS: Ht 157.5 cm; Wt 56.7 kg
--- NOTE | ~2018-09-16 | OP ---
PATIENT NAME: GOSIA VILLANUEVA MEDICAL RECORD: [id number] :[birth year] LOCATION:[facility]- ADMISSION DATE:10/02/18 SURGEON: TANVI MILLER MD DATE OF OPERATION: 10/02/2018 REFERRING PHYSICIANS: 1. Chris Flores MD 2. 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 OPERATIONS PERFORMED: Left upper extremity AV fistulogram, balloon angioplasty, and drug-coated balloon treatment of in-stent left subclavian vein stenosis. SURGEON: Tanvi Miller MD ANESTHESIA: MAC per AUTOMATIC TELLER MACHINE SERVICER and local 1% lidocaine. PREOPERATIVE NOTE: Ms. Villanueva is a 78-year-old white female patient with end-stage renal disease, on chronic hemodialysis with a left arm brachiobasilic AV graft. She has a problem with recurrent left subclavian vein stenosis despite stenting. She is brought to the hospital so that she can have a fistulogram and drug-coated balloon angioplasty. DESCRIPTION OF PROCEDURE: Under MAC, the patient was placed in supine position, prepped and draped in sterile manner. I injected 1% lidocaine without epinephrine into the skin over the juxtaarterial segment of PTFE graft and used micropuncture technique to access the graft and this led up to placement of an 8-Divehi introducer. I then performed a venogram, which revealed no abnormalities other than an 80% recurrent in-stent stenosis at the distal portion of the stent. I was able to cross this with a 0.035 Glidewire and subsequently with a 9-mm diameter Conquest balloon. The Conquest balloon was inflated and held inflated for 30 more seconds and then deflated and removed. Followup angiogram revealed good result with about a 10% residual stenosis. I then inserted the Lutonix balloon. I had requested that the operating room be prepared with a 10-mm x 40-mm Lutonix balloon; however, that did not materialize. Fortunately, we did have a 10 x 60 in stock and I used that. The balloon was placed across the area of stenosis and inflated to 10 atmospheres and held inflated continuously at that pressure for 2 minutes. It was then deflated and withdrawn. Repeat contrast injection then revealed 0% stenosis or complete resolution of that stenosis. The patient's hardware was removed. Hemostasis at the puncture site obtained with a [id number] 4-0 Prolene suture and Ultrafoam, Cavilon, and Tegaderm dressings. The patient was awakened and returned to the outpatient department in stable condition. There was no blood loss during the procedure. All sponges, instruments, and needles were accounted for. No drain was used and no surgical specimen submitted for histopathology. PLAN: The patient should return to [facility] for a followup angiogram in 3 months. She will continue on her same diet, activities, dialysis schedule, etc. tomorrow. OPERATIVE REPORT [id number] GOSIA VILLANUEVA TRANSINT:[id number] Voice Confirmation ID: [id number] DOCUMENT ID: [id number] cc: Alvarado Jacobsen [phone] [facility] [phone] TANVI MILLER MD CC: ALVARADO JACOBSEN [facility] and CHRIS [phone] DICTATION DATE: 10/02/18 1347 JAVA SOFTWARE: 10/02/18 1644 [facility] IN 10/02/18 [facility] [address] [place] [address]
[~2018-09-16 16:58] MED LIST changes: +ATARAX 25 MG TA25 MG PO; +GABAPENTIN100 MG PO; +IMODIUM2 MG PO; +RENA-VITE TABL0.8 MG PO
[2018-10-02] MEDS ORDERED: PHOSLO667 MG PO (09:10)
[2018-10-02 09:15] LABS: BASOPHILS 0.4 % (0-2); HEMATOCRIT 36.1 % (36.0-48.0); HEMOGLOBIN 11.4 g/dL (12-16); IMMATURE GRANULOCYTES 0.1 % (0-5); LYMPHOCYTES 27.9 % (15-50); MCH 30.2 pg (26.0-34.0); MCHC 31.6 g/dL (31.0-37.0); MCV 95.5 fL (80.0-100.0); MEAN PLATELET VOLUME 9.7 fL (7.4-10.4); NEUTROPHILS 53.6 % (40-80); RBC 3.78 10x6/uL (4.00-5.40); RDW 16.5 % (11.5-14.5); WBC 7.1 10x3/uL (4.8-10.8)
[2018-10-02 09:16] LABS: PLATELET COUNT 203 10x3/uL (130-400)
[2018-10-02 09:21] VITALS: Ht 157.5 cm; Wt 56.7 kg
[2018-10-02 09:35] LABS: ANION GAP 16.8 mmol/L (8-16); CALCIUM 8.9 mg/dL (8.5-10.1); CARBON DIOXIDE 25.2 mmol/L (21.0-32.0); CREATININE - SERUM 5.2 mg/dL (0.6-1.3)
[2018-10-02 09:54] LABS: INR 1.16 (0.85-1.17); PROTIME 14.3 SECONDS (11.6-15.0)
--- NOTE | 2018-10-02 13:42 | NUR ---
1325-RECD FROM SURGERY, NO PACU. ALERT. IV PATENT. LEFT ARM DRESSING DRY AND INTACT, +THRILL
--- NOTE | 2018-10-02 14:40 | NUR ---
RIGHT HAND PIV DC'D WITH TIP INTACT. PATIENT DRESSING IN PERSONAL CLOTHING WITH DAUGHTER'S ASSISTANCE
--- NOTE | 2018-10-02 14:55 | NUR ---
DISCHARGE INSTRUCTIONS REVIEWED WITH PATIENT AND DAUGHTER. PATIENT DISCHARGED HOME VIA WHEELCHAIR TO PRIVATE VEHICLE WITH DAUGHTER
== END 2018-10-02 14:55 | disposition home or self-care (01) | DRG 252 ==
LOC: D.SDCHOLD 10-02 08:06
PROVIDERS: Surgery; ADMIT Internal Medicine Nephrology; ATTEND Internal Medicine Nephrology
PROC: B5171ZZ Fluoroscopy of Left Subclavian Vein using Low Osmolar Contrast (ICD-10-PCS; 2018-10-02)
PROC: 05763Z1 Dilation of Left Subclavian Vein using Drug-Coated Balloon, Percutaneous Approach (ICD-10-PCS; principal; 2018-10-02 11:00)
DX: T82.856A Stenosis of peripheral vascular stent, initial encounter (principal); N18.6 End stage renal disease; Y83.8 Other surgical procedures as the cause of abnormal reaction of the patient, or of later complication, without mention of misadventure at the time of the procedure; E11.22 Type 2 diabetes mellitus with diabetic chronic kidney disease; Z99.2 Dependence on renal dialysis; I25.10 Atherosclerotic heart disease of native coronary artery without angina pectoris